=== PATIENT | male | born 1950 ===

== ENCOUNTER 2020-06-11 06:46 | Day surgery (SDC) | payer BC ==
[~2020-06-11 06:46] MED LIST: Lactated Ringers 1,000 ML IV SCH; Sodium Chloride 0.9% 10 ML Syringe FLUSH PRN
[2020-06-11] MEDS ORDERED: Propofol 200 MG/20 ML SDV IV ONE (06:47)
--- NOTE | 2020-06-11 08:26 | PCM.OPNOTE ---
- General Post-Op/Procedure Note Date of Surgery/Procedure: 06/11/20 Operative Procedure(s): c scope Findings: nl exam Pre Op Diagnosis: colon cancer screening Post-Op Diagnosis: Same. Nl exam Anesthesia Technique: MAC Primary Surgeon: Mehrdad Tong Anesthesia Provider: Tani Hodges Pathology: none Complications: None Condition: Good Free Text/Narrative:: see dictation #[id number]
[2020-06-11 10:02] VITALS: BP 149/90; PULSE 69
--- NOTE | 2020-06-11 11:21 | OR ---
DATE OF OPERATION: 06/11/2020 SURGEON: Mehrdad Tong MD PROCEDURE PERFORMED: Colonoscopy. PREOPERATIVE DIAGNOSIS: Colon cancer screening. POSTOPERATIVE DIAGNOSIS: Normal exam. INDICATIONS FOR PROCEDURE: This is a 69-year-old white male who is referred for routine followup. No complaints. No previous history of polyps. Negative family history, was offered and accepted colonoscopy. DESCRIPTION OF OPERATION: After an excellent IV sedation was administered, digital rectal exam was performed. No marked abnormality was noted. Flexible colonoscope was inserted and advanced to the cecum without difficulty. The prep was excellent. The following findings were noted. Ascending colon, unremarkable. Transverse colon, unremarkable. Descending colon, unremarkable. Sigmoid and rectum, unremarkable. Colon was deflated as the scope was removed. The cecum was identified by usual anatomic markers. RECOMMENDATIONS: Repeat colonoscopy in 10 years or sooner on a p.r.n. basis. /[id number] /MODL
== END 2020-06-11 09:10 | disposition home or self-care (01) ==
LOC: FB.SDS 06:46
PROVIDERS: ATTEND Surgery
DX: Z12.11 Encounter for screening for malignant neoplasm of colon (principal); I25.10 Atherosclerotic heart disease of native coronary artery without angina pectoris; E78.5 Hyperlipidemia, unspecified; E11.9 Type 2 diabetes mellitus without complications; I10 Essential (primary) hypertension; Z88.8 Allergy status to other drugs, medicaments and biological substances; Z79.82 Long term (current) use of aspirin; Z79.899 Other long term (current) drug therapy
CPT/HCPCS: 00812-QZ; 82962; J2704; J7120